=== PATIENT | male | born 1945 | race Caucasian/White ===

== ENCOUNTER 2016-05-10 17:30 | Observation (INO) | payer MEDICARE, OTHER ==
[~2016-05-10] VITALS: Ht 162.6 cm; Wt 64.0 kg
--- NOTE | 2016-05-10 17:24 | NUR ---
ADMISSION TO MEDICAL UNIT PT HYPERTENSIVE, OTHERWISE, VSS. RA. DENIES PAIN. ADMITTED WITH 22G IV FROM [facility]. EMS LAST CHECKED BLOOD GLUCOSE AT 1715, READING WAS 348. PT TRANSFERRED INDEPENDENTLY FROM CART TO BED.
[2016-05-10 17:30] VITALS: BP 170/82; PULSE 71; RESP 16; TEMP 96.9; O2SAT 95
[~2016-05-10 17:30] MED LIST: ASCO-296 PO; ASPI-611 PO; CITA-50 PO; DONE10TA21 PO; GLIM4TAB31 PO; INSU100C11 SQ; MULT-806 PO; OMEP-29 PO; SIMV40TA82 PO; TRAM-277 PO
--- OUTSIDE RECORDS SUMMARY | 2016-05-10 17:42 | XMS REPORT | CCD ---
Author Author LILIANA DURBIN Organization Unknown Address [address], [place] [id number] Phone 0 Care Team Providers Care Automobile Service Station Manager Name Role Phone Erik SHELBY Attending Physician [phone] Vital Signs Unknown or Not Available. Allergies Allergy Code Allergy Type Reaction Status CODEINE 2670 Drug allergy Active Procedures Unknown or Not Available. History of Immunizations Unknown or Not Available. Problems Unknown or Not Available. Results C-REACTIVE PROTEIN - Collect Date/Time: 02/17/2016 15:35 Test Name Code Test Result Test Units Test Ref Range CRP <2 mg/L L=0 H=5 COMP METABOLIC - Collect Date/Time: 02/17/2016 15:35 Test Name Code Test Result Test Units Test Ref Range GLUCOSE 266 mg/dL L=70 H=110 BUN 24 mg/dL L=7 H=18 CREATININE 1.32 mg/ dL L=0.60 H=1.30 AGE 71 YEARS GFR 53.2 L=60.0 H=120 SODIUM 140 mmol/L L=136 H=145 POTASSIUM 4.0 mmol/ L L=3.5 H=5.1 CHLORIDE 105 mmol/L L=98 H=107 CO2 27 mmol/L L=21 H=32 CALCIUM 9.6 mg/dL L=8.5 H=10.1 AST 9 U/L L=15 H=37 ALT 19 U/L L=12 H=78 ALKALINE PHOS 105 U/ L L=46 H=116 TOTAL PROTEIN 7.7 g/ dL L=6.4 H=8.2 ALBUMIN 3.7 g/dL L=3.4 H=5.0 TOTAL BILI 0.40 mg/ dL L=0.00 H=1.00 CBC W/ DIFF - Collect Date/Time: 02/17/2016 15:35 Test Name Code Test Result Test Units Test Ref Range WBC 14.5 x10^3 L=4.8 H=10.8 RBC 4.60 x10^6 L=4.70 H=6.10 HEMOGLOBIN 15.0 g/ dL L=14.0 H=18.0 HEMATOCRIT 44.6 % L=42.0 H=52.0 MCV 97 fL L=80 H=100 MCH 32.5 pg L=27.0 H=33.0 MCHC 33.6 g/dL L=33.0 H=37.0 RDW 12.5 % L=11.5 H=14.5 PLATELETS 308 x10^3 L=150 H=450 MPV 8.4 fL L=7.8 H=11.0 NEUTROPHILS 66.6 % L=40.0 H=80.0 LYMPHOCYTES 24.3 % L=20.0 H=45.0 MONOCYTES 4.7 % L=0.0 H=10.0 EOSINOPHILS 3.4 % L=0.0 H=5.0 BASOPHILS 1.0 % L=0.0 H=2.0 REFLEX MAN DIFF NO N /A Active Medications Unknown or Not Available. Medications Administered During Visit Unknown or Not Available. Encounters Encounter Diagnosis Diagnosis Code Start Date Noninfective gastroenteritis and colitis, unspecified K529 02/17/2016 Social History Smoking Status Code Start Date End Date Current every day smoker [id number] Patient Decision Aids Unknown or Not Available. Discharge Instructions You were admitted to [facility] on 02/17/2016 15:29 with a principal diagnosis of Noninfective gastroenteritis and colitis, unspecified You had the following tests done: C- REACTIVE PROTEIN CBC W/ DIFF COMP METABOLIC You were discharged from [facility] on 02/17/2016 15:29 Should you have any questions prior to discharge, please contact a member of your healthcare team. If you have left the hospital and have any questions, please contact your primary care physician. Chief Complaint and Reason For Visit Chief Complaint Date of Onset LAB Function Status Unknown or Not Available. Plan of Care Unknown or Not Available. Referral/Transition of Care Unknown or Not Available.
--- OUTSIDE RECORDS SUMMARY | 2016-05-10 17:42 | XMS REPORT | Continuity of Care Document ---
Demographics Preferred Language Unknown Marital Status Unknown Pentecostalism Affiliation Unknown Race Unknown Ethnic Group Unknown Author Author [facility] Organization [facility] Address Unknown Phone Unavailable Allergies Medications Problems Procedures Results Encounters ACCT No. Visit Date/Time Discharge Status Pt. Type Provider Facility Loc./Unit Complaint [id number] 03/27/2016 08:17:00 [facility] Unknown [id number] 09/18/2013 10:47:00 [facility] Unknown
--- OUTSIDE RECORDS SUMMARY | 2016-05-10 17:42 | XMS REPORT | CCD ---
Author Author NUHA ROY Organization Unknown Address [address], [place] [id number] Phone 0 Care Team Providers Care Photo Manager Name Role Phone Jacinta SALVADOR Attending Physician [phone] Jacinta SALVADOR Primary Surgeon [phone] Vital Signs Unknown or Not Available. Allergies Allergy Code Allergy Type Reaction Status CODEINE 2670 Drug allergy Active Procedures Unknown or Not Available. History of Immunizations Unknown or Not Available. Problems Unknown or Not Available. Results Unknown or Not Available. Medications Medication Code Dose Units Frequency Route Modification Start Date/Time Stop Date/ Time Nitrostat 0.4MG Sublingual Tablet 641119 0.4 MILLIGRAMS NEEDED SUBLINGUAL Humalog Pen 100U/ML Subcutaneous Suspension 810805 9 UNIT TWICE A DAY SUBCUTANEOUS Tramadol 50MG Oral Tablet 939866 100 MILLIGRAMS AT BEDTIME ORAL Simvastatin 40MG Oral Tablet 363111 40 MILLIGRAMS AT BEDTIME ORAL Celexa 20MG Oral Tablet 176113 20 MILLIGRAMS DAILY ORAL ARICEPT 0 10 MILLIGRAM AT BEDTIME By Mouth Lantus 100U/1ML Subcutaneous Solution 394815 15 UNIT AT BEDTIME SUBCUTANEOUS Tramadol 50MG Oral Tablet 229438 50 MILLIGRAMS DAILY ORAL Omeprazole 20MG Oral Capsule, Delayed Release 150715 40 MILLIGRAMS DAILY ORAL Medications Administered Unknown or Not Available. Encounters Unknown or Not Available. Social History Smoking Status Code Start Date End Date Current every day smoker [id number] Patient Decision Aids Unknown or Not Available. Discharge Instructions You were admitted to [facility] on 09/16/2013. You were discharged from [facility] on 09/16/2013. Should you have any questions prior to discharge, please contact a member of your healthcare team. If you have left the hospital and have any questions, please contact your primary care physician. Chief Complaint and Reason For Visit Unknown or Not Available. Function Status Unknown or Not Available. Plan of Care Unknown or Not Available. Referral/Transition of Care Unknown or Not Available.
[2016-05-10] MEDS ORDERED: NORMAL SALINE 1,000 ML IV SCH ×2 (18:00→20:00)
[2016-05-10] MEDS ORDERED: CLONIDINE 0.1 MG TABLET PO ONE (18:00)
[2016-05-10 18:09] VITALS: Ht 162.6 cm; Wt 64.0 kg
[2016-05-10] MEDS ORDERED: MIRT15TA2 PO (18:38)
[2016-05-10] MEDS ORDERED: HYDR25TA PO (18:38)
[2016-05-10] MEDS ORDERED: ASPI-917 PO (18:38)
[2016-05-10] MEDS ORDERED: LISI-621 PO (18:38)
[2016-05-10] MEDS ORDERED: INSULIN LISPRO 100 UNIT/ML SQ ONE (19:00)
[2016-05-10 19:35] VITALS: BP 140/68
--- NOTE | 2016-05-10 19:37 | NUR ---
SHIFT SUMMARY VSS, HYPERTENSION IMPROVED. LUNGS REMAINS CLEAR BUT DIMINISHED IN THE BASES, UNCHANGED FROM ADMISSION. NS INFUSING AT 500CC/HR UNTIL THIS LITER IS COMPLETE. THIS IS THE SECOND LITER BAG OF NS PATIENT HAS RECEIVED SINCE ARRIVAL. LAST BLOOD GLUCOSE DOCUMENTED AT 1814, LOWER THAN PREVIOUSLY. NEXT BLOOD GLUCOSE WILL BE CHECKED AT 2014. PATIENT HAS GOOD APPETITE. UP WITH SBA. BED ALARM IN USE DUE TO HYPERGLYCEMIA AND DEMENTIA.
[2016-05-10] MEDS: NORMAL SALINE 1,000 ML IV SCH (21:46)
--- NOTE | 2016-05-10 22:16 | HPPDOC ---
HPI - Adult Date DATE: 05/10/16 TIME: 22:02 General Chief Complaint: my sugar is high. History of Present Illness Mr. Erich Lopez was seen by me in his room and around 7:30 tonight. He was brought down here by ambulance from the [facility] where he went because he generally didn't feel well and he had a high blood sugar of 500 at home and 423 in the ER [facility]. He lives at home with his there is no further history to his current problem although he has been a diabetic for about 15 years he thinks. Mr. Lopez has significant dementia and his and daughters provide much of this history. Past Medical History Past Medical History This patient's says he's had diabetes mellitus type 2 since about age 53; she says he has some COPD she thinks from many years of smoking but that he doesn't take any medicine for the COPD. 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 It is progressive. He has mild coronary artery disease; and he has peripheral arterial disease with a lower extremity femoral to femoral bypass surgery he has mild cardiomyopathy his last known ejection fraction to be 44% he has dementia and he has hypertension Surgical History Patient's Surgical History: Patient surgical history includes the aorto femoral to femoral bypass not sure when that was done and that's the only surgery that the family lives also needs oxygen at night which technically should be under the medical part in needs 2 L at night. Current Medications Home Meds Reported Medications Mirtazapine (Remeron) 15 Mg Tab.rapdis, 7.5 MG PO DAILY 05/10/16 Hydrochlorothiazide (Hydrochlorothiazide) 25 Mg Tablet, 1 TAB PO DAILY, TAB 05/10/16 Lisinopril (Lisinopril) 20 Mg Tablet, 20 MG PO DAILY for HYPERTENSION, TAB 05/10/16 Aspirin *EC* (Aspirin EC) 325 Mg Tablet., 1 TAB PO DAILY, #30 TAB 5 Refills 05/10/16 Citalopram (Celexa) 20 Mg Tablet, 20 MG PO DAILY 12/11/11 Donepezil Hcl (Aricept) 10 Mg Tablet, 10 MG PO DAILY 12/11/11 Tramadol Hcl (Tramadol Hcl) 50 Mg Tablet, 50 MG PO DAILY TWO TABLETS IN AM (100MG) 12/11/11 Omeprazole (Prilosec) 20 Mg Capsule.dr, 20 MG PO DAILY PT TAKES 1 CAPSULE DAILY 12/11/11 Multivitamins (Multivitamin) 1 Tab Tablet, 1 TAB PO DAILY 12/10/11 Ascorbic Acid (Vitamin C) 500 Mg Tablet, 500 MG PO DAILY 12/10/11 Insulin Glargine (Lantus) 100 U/Ml Cartridge, 12 U SQ HS 03/04/08 Simvastatin (Simvastatin) 40 Mg Tablet, 40 MG PO DAILY 03/04/08 Discontinued Reported Medications Aspirin (Aspirin) 81 Mg Tablet, 81 MG PO DAILY 12/11/11 Allergies: Coded Allergies: Codeine (Verified Allergy, Unknown, 09/03/07) Family History Family History: Family history is noncontributory Social History Smoking Status: Former smoker Does patient use chewing tobac: No Substance Use Type: does not use Alcohol Intake: none, occasionally Marital Status: Sexuality: female partner Housing: house Household Members: spouse Current Occupational Status: retired Advance Directives: No DPOA for Healthcare Only Review of Systems Constitutional: DENIES: insomnia, weight gain, weight loss Eyes General: DENIES: burning, itching Lids/Accessories: DENIES: erythema, swelling Vision: DENIES: change in color ENMT Ears: DENIES: drainage, pain Hearing: DENIES: hearing loss, tinnitus Balance: DENIES: falling to one side, vertigo Sinuses: NOT FOUND: congestion, rhinorrhea Nose: NOT FOUND: change in smell, foreign body, nosebleeds, pain Mouth/Throat: DENIES: change in swallowing, drooling, pain, painful swallowing , sore throat ENMT Teeth: DENIES: pain Jaw: DENIES: clicking, limited opening of mouth Cardiovascular DENIES: chest pain, orthopnea Vascular: DENIES: Raynaud's, atrophy Pulmonary Respiratory: DENIES: pleuritic chest pain, sputum GI Upper Abdomen: DENIES: dysphagia, food intolerances, nausea Lower Abdomen: DENIES: blood in stool, pain General: DENIES: discharge, dysuria, frequency, hematuria, polyuria, urgency Male: DENIES: frequency, hesitancy, retention Musculoskeletal General: DENIES: cramps, pain, weakness Integumentary Skin: DENIES: color change, itching, rash Hair: DENIES: alopecia, dandruff Nails: DENIES: paronychia, subungal hematoma Neurological General: DENIES: ataxia, headache, numbness, paralysis/paresis, tremor Psychiatric Psychiatric: DENIES: depression, emotional instability, nervousness Endocrine DENIES: heat/cold intolerance Hematologic/Lymphatic DENIES: anemia, easy bruising All Other Systems All Other Systems: Reviewed (remainder of 10-point ROS Neg.) Physical Exam General General Nourishment: well nourished, well developed General Body Habitus: well groomed Vital Signs Vital Signs Date Time Temp Pulse Resp B/P Pulse Ox O2 Delivery O2 Flow Rate FiO2 05/10/16 19:35 140/68 05/10/16 17:30 96.9 71 16 95 Room Air Height (Feet): 5 Height (Inches): 4.00 Telemetry Rhythm: Sinus Rhythm Eyes Brief: FOUND: EOMI, PERRL ENMT Brief: FOUND: TM clear, TM good light reflex, ear canals clear Neck Brief: NOT FOUND: adenopathy, carotid bruits, thyromegaly Respiratory Brief: FOUND: clear all nair, equal bilaterally, NOT FOUND: rales , wheezes Cardiovascular (brief) Cardiac Brief: FOUND: regular rate, regular rhythm, NOT FOUND: pedal edema Capillary Refill: <2 sec Abdomen (brief) Abdominal Brief: FOUND: BS normo active x4, soft, tender Lymphatic (brief) Lymphatic Brief: NOT FOUND: adenopathy, lymphedema Musculoskeletal (brief) Musculoskeletal Brief: NOT FOUND: spasm, tenderness Integumentary (brief) Integumentary Brief: FOUND: dry, pink, warm, NOT FOUND: rash Neurologic (brief) Neurological Brief: FOUND: cranial 2-12 intact, motor, NOT FOUND: facial droop , ptosis Neurologic RN Documented GCS Eye Opening: Verbal: Motor: Total: Psychiatric (brief) FOUND: alert, oriented, other Comments Patient does have significant dementia which is somewhat obvious. Laboratory Laboratory Tests Test 05/10/16 20:13 Glucometer 315mg/dL [facility] patient had a two-view chest x-ray which we will repeat here. The radiologist read that one noticed atelectasis and thought to be repeated, although he did not say when. Sepsis Diagnostic Criteria Sepsis Confirmed/Suspected Infection: No Assessment & Plan Assessment The lab work which want to mention at this point in time showed a blood sugar in the urine, troponin was negative, glucose of the ER at [facility] was 423. GFR is 51 years of hyponatremia of 134 his ABG looks very good and is influenza A and B testing was negative for, his diagnoses are as follows: Diabetes mellitus type 2, poorly controlled COPD, fairly mild 3. Aortic stenosis of moderate to severe 4. Dementia, moderate to moderate +5. Hypertension 6. Mild coronary artery disease. Peripheral arterial disease A. Mild cardiomegaly with an ejection fraction of 44% Plan is to recheck his troponin level, due to repeat his EKG, the chest x-ray to clear up any questions with the first chest x-ray and hydrate him and get his sugar down to a more reasonable level than the 315 it was when he came in here. This is good Code Status Full Code Hospital Course Summary Disclaimer The hospital course summary below is not to be considered part of the above Progress Note. JAROD CERNA DO May 10, 2016 22:05
[2016-05-10] MEDS: INSULIN LISPRO 100 UNIT/ML SQ PRN (22:41)
[2016-05-11] VITALS: BP 140/67; PULSE 58; RESP 16; TEMP 97; O2SAT 95
[2016-05-11] MEDS: NORMAL SALINE 1,000 ML IV SCH ×2 (03:09→08:38)
--- NOTE | 2016-05-11 05:16 | NUR ---
SHIFT SUMMARY: PT IS A&OX2-3, VSS, LUNGS ARE CLEAR, BUT DIMINISHED. NORMAL SALINE IS RUNNING AT 200 MLS/HR. SLEPT IN PT'S ROOM DURING THE NIGHT. PT IS UP WITH STANDBY ASSIST TO THE BATHROOM. PT IS ON RA DURING THE DAY, BUT 2L OXYGEN NC AT NIGHT. PT HAS BGM'S, AND MODERATE DEMENTIA. PT DENIES ANY PAIN OR N/V. BED ALARM ON, CALL LIGHT WITHIN REACH.
[2016-05-11] MEDS: INSULIN LISPRO 100 UNIT/ML SQ PRN ×2 (05:57→12:19)
[2016-05-11] MEDS ORDERED: OMEPRAZOLE 20 MG CAPSULE PO SCH (06:30)
[2016-05-11] MEDS ORDERED: INSU100V SQ (06:35)
[2016-05-11 07:25] VITALS: BP 152/71; PULSE 61; RESP 18; TEMP 97; O2SAT 96
[2016-05-11 07:28] VITALS: O2SAT 91
[2016-05-11 07:29] VITALS: PULSE 61; RESP 18
[2016-05-11] MEDS ORDERED: HYDROCHLOROTHIAZIDE 25 MG TABLET PO SCH ×2 (08:00)
--- NOTE | 2016-05-11 08:21 | DI ---
INDICATION: ITS.REASON: cough and repeat from today PROCEDURE: CHEST 2-VIEWS UPRIGHT (PA \T\ LAT) Encounter: Initial COMPARISON: May 10, [address] chest dated April 16, 2014 FINDINGS: Coarse interstitial markings are seen bilaterally consistent with interstitial lung disease or pulmonary fibrosis. Severe emphysema. No lobar consolidative pneumonia. Heart size and mediastinal contours are grossly stable. Pulmonary vascularity is unchanged. Impression: Severe emphysema and evidence of interstitial lung disease or fibrosis. Underlying atypical pneumonia or mild edema cannot be confidently excluded with this appearance. Recommend clinical and laboratory correlation. .
[2016-05-11] MEDS: INSULIN LISPRO 100 UNIT/ML SQ SCH ×2 (08:53→12:18)
[2016-05-11] MEDS ORDERED: LISINOPRIL 20 MG TABLET PO SCH ×2 (09:00)
[2016-05-11] MEDS ORDERED: ASCORBIC ACID 500 MG TABLET PO SCH (09:00)
[2016-05-11] MEDS ORDERED: TRAMADOL 50 MG TABLET PO SCH (09:00)
[2016-05-11] MEDS ORDERED: ASPIRIN *EC* 325mg TABLET PO SCH (09:00)
[2016-05-11] MEDS ORDERED: MULTIVITAMIN PLAIN TABLET PO SCH (09:00)
[2016-05-11] MEDS ORDERED: HYDR12.530 PO (10:48)
[2016-05-11] MEDS ORDERED: LISI10TA7 PO (10:56)
[2016-05-11 11:46] LABS: ANION GAP 9 MEQ/L (5-15); BUN/CREATININE RATIO 21 RATIO (6-26); CALCIUM 8.6 MG/DL (8.4-10.2); CHLORIDE 114 MEQ/L (98-107); CO2 - CARBON DIOXIDE 22 MEQ/L (22-30); CREATININE 0.9 MG/DL (0.8-1.5); GLOMERULAR FILTRATION RATE 83; GLUCOSE 208 MG/DL (75-110); POTASSIUM 4.1 MEQ/L (3.6-5); SODIUM 145 MEQ/L (134-144)
--- NOTE | 2016-05-11 12:29 | NUR ---
DM screen Diet: LA4115; ate 95% of BF; stated he had "not eaten BF". RD visited with , Fátima, who was at patient's bedside. Pt eats 2 meals daily (1100, 1800), sleeps until 6467-1213. Drinks diet Pepsi and water at meals; does not drink sugar drinks. RD reviewed DM plate, with suggestion of fruit at BF and vegetable at supper. Reviewed S/S of hypoglycemia, which he has not had for a long time, along with treatment options. Addendum: 05/11/16 at [address] Gave contact information and MNT brochure for f/u.
--- NOTE | 2016-05-11 14:36 | NUR ---
STATUS VSS. DENIES PAIN. UP IN ROOM WITH SBA. GOOD URINE OUTPUT. BLOOD GLUCOSE TRENDING DOWN, LAST CHECK BEFORE LUNCH WAS 211. GOOD APPETITE. NS INFUSING AT 100 CC/HR. IN ROOM ALSO.
--- NOTE | 2016-05-11 14:37 | NUR ---
CM THIS WORKER MET WITH PT IN ROOM. PT WAS LAYING IN BED. PT'S AT BEDSIDE. THIS WORKER ADVISED OF ROLE OF CASE MANAGEMENT. PT AND BOTH DENIED ANY NEEDS AT THIS TIME. PT IS LIVING AT HOME WITH . REPORTS THAT SHE TAKES CARE OF HIS NEEDS. PT IS ABLE TO AFFORD AND RECEIVE ALL OF HIS MEDICATIONS. CONTACT INFORMATION PROVIDED TO FAMILY AND ENCOURAGED TO CONTACT WITH ANY NEEDS. UPDATE TO PRIMARY NURSE AND PHYSICIAN AT THIS TIME.
[2016-05-11] MEDS ORDERED: INSU100V8 SQ (14:57)
--- NOTE | 2016-05-11 14:57 | PNPDOC ---
Subjective Date DATE: 05/11/16 TIME: 14:49 Subjective F/U: Type II DM with hyperglycemia Doing well today. Breathing well-not having increased SOA cough or congestion. No chest pressure or pain. Eating well without nausea. No ab pain. Urinating well. No f/c. Objective Vital Signs Vital signs Vital Signs Date Time Temp Pulse Resp B/P Pulse Ox O2 Delivery O2 Flow Rate FiO2 05/11/16 07:29 61 18 05/11/16 07:28 91 Room Air 05/11/16 07:25 97.0 152/71 2.00 Telemetry Rhythm: Sinus Rhythm Height (Feet): 5 Height (Inches): 4.00 Weight (Kilograms): 64.000 General General Appearance: Alert, Well Nourished, Well Developed, Cooperative, No Acute Distress, Looks Stated Age Eyes (Brief) Eyes: FOUND: EOMI, PERRL, NOT FOUND: scleral icterus ENMT (Brief) ENMT: FOUND: hearing intact, mucosa moist Neck (Brief) Neck: FOUND: nuchal rigidity, spasm, NOT FOUND: midline Respiratory (Brief) Respiratory: FOUND: clear all nair, equal bilaterally, NOT FOUND: rales, wheezes Cardiovascular (Brief) Cardiac: FOUND: murmur, regular rate, regular rhythm Abdomen (Brief) Abdominal: FOUND: BS normo active x4, soft, NOT FOUND: tender Extremities (Brief) Extremity : Side: Bilateral Extremity: leg Extremity Finding: NOT FOUND: edema Musculoskeletal (Brief) Musculoskeletal: FOUND: extremities move equally, NOT FOUND: deformity, loss of motion, spasm, tenderness Integumentary (Brief) Integumentary: FOUND: dry, warm Neurologic (Brief) Neurological: FOUND: cranial 2-12 intact, motor (Intact ) Psychiatric (Brief) Psychiatric: FOUND: alert, attentive, normal affect, oriented Laboratory Laboratory Laboratory Tests 05/11/16 11:27 Sepsis Diagnostic Criteria Sepsis Confirmed/Suspected Infection: No Assessment & Plan Problems: (1) Type II diabetes mellitus Status: Chronic Qualifiers: Diabetes mellitus complication status: with hyperglycemia Diabetes mellitus skilled nursing insulin use: with skilled nursing use Qualified Codes: E11.65 - Type 2 diabetes mellitus with hyperglycemia; 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 (2) CAD (coronary artery disease) Status: Chronic Qualifiers: Coronary Disease-Associated Artery/Lesion type: [place] artery [place] vs. transplanted heart: [place] heart (3) PVD (peripheral vascular disease) Status: Chronic (4) HTN (hypertension) Status: Chronic Qualifiers: Hypertension type: essential hypertension Qualified Codes: I10 - Essential (primary) hypertension (5) COPD (chronic obstructive pulmonary disease) Status: Chronic Qualifiers: COPD type: unspecified COPD Qualified Codes: J44.9 - Chronic obstructive pulmonary disease, unspecified (6) Dementia Status: Chronic Qualifiers: Dementia type: unspecified type Assessment Will d/c to home. Increase Lantus from 12 to 14 units at night. F/U with Dr Reid in 1 week See orders for details. Code Status Full Code Hospital Course Summary Disclaimer The hospital course summary below is not to be considered part of the above Progress Note. Hospital Course Summary 05/10 Plan is to recheck his troponin level, due to repeat his EKG, the chest x-ray to clear up any questions with the first chest x-ray and hydrate him and get his sugar down to a more reasonable level than the 315 it was when he came in here. 05/11 Doing well today. Breathing well-not having increased SOA cough or congestion. No chest pressure or pain. Eating well without nausea. No ab pain. Urinating well. No f/c. Blood sugars decreasing to lower 200 range. Will d/c to home. Increase Lantus from 12 to 14 units at night. F/U with Dr Reid in 1 week See orders for details. CATIA ORONA MD May 11, 2016 14:53
--- NOTE | 2016-05-11 16:00 | NUR ---
discharge Pt had pulled out own iv site. discharge instructions reviewed with . dc per wc with .
[2016-05-11 16:04] VITALS: BP 160/76; PULSE 85; RESP 18; TEMP 98.7; O2SAT 87
[2016-05-11] MEDS ORDERED: SIMVASTATIN 40 MG TABLET PO SCH (22:00)
[2016-05-11] MEDS ORDERED: DONEPEZIL 10 MG TABLET PO SCH (22:00)
[2016-05-12] MEDS ORDERED: HYDROCHLOROTHIAZIDE 12.5 MG CAPSULE PO SCH (08:00)
[2016-05-12] MEDS ORDERED: HYDROCHLOROTHIAZIDE 25 MG TABLET PO SCH (08:00)
[2016-05-12] MEDS ORDERED: LISINOPRIL 20 MG TABLET PO SCH (09:00)
[2016-05-12] MEDS ORDERED: LISINOPRIL 10 MG TABLET PO SCH (09:00)
--- NOTE | 2016-05-12 14:45 | DSF ---
ADMITTING DIAGNOSIS Type 2 diabetes mellitus with hyperglycemia. DISCHARGE DIAGNOSIS Type 2 diabetes mellitus with hyperglycemia - sugars improved. ASSOCIATED CONDITIONS/COMPLICATIONS 1. CAD. 2. PVD. 3. Hypertension. 4. COPD. 5. Dementia. PROCEDURES None CONSULTS None. CLINICAL RESUME Mr. Lopez is a 71-year-old gentleman who was made direct admit to [facility] at the request of ED provider in [place]. He presented to [facility] emergency room in [place] earlier today with symptoms of generally not feeling well. Additionally that morning blood sugar was elevated at 500. In the emergency room it was found to be 423. He resides with his . Notes sugars are typically in the 200s. He has been diabetic for around 15 years. He does have significant dementia and and daughter provide history. For complete details of the H&P refer to that document. LABORATORY Troponin is 0.022. Serum sodium is 145, potassium 4.1, chloride 114, CO2 22, BUN 19 with creatinine 0.9, GFR 83, blood glucose 208. HOSPITAL COURSE The patient was placed in outpatient observation status at [facility] under the care of Dr. Jaffe. He started on normal saline at 200 cc an hour to provide hydration. Insulin sliding scale was initiated. Blood sugars were monitored. We did repeat troponin here to monitor blood sugars. Overall his glycemic control showed improvement, decreasing to 315 by time of arrival and 211 by time of discharge. He had no untoward symptoms. He is not having any nausea, vomiting, diarrhea or abdominal pain. Respiratory status did well. By time of discharge he was eating, drinking and ambulating well. Vitals were stable and he is afebrile. Stable to be discharged to home. Prior to discharge we discussed about increasing his Lantus dose to 14 units for better glycemic control. Narrative disclaimer: Above narrative is a brief summary of the patient's hospitalization; for complete details of hospital course, refer the medical record. DISCHARGE CONDITION Stable/good. DIET: 2000 kilocalorie ADA , low sodium. ACTIVITIES As tolerated. MEDICATIONS 1. Lantus 14 units subcu q.h.s. 2. Humalog 9 units subcu with meals. 3. Vitamin C 500 mg daily 4. Aspirin 325 mg daily. 5. Celexa 20 mg daily. 6. Aricept 10 mg daily. 7. Hydrochlorothiazide 12.5 mg with breakfast. 8. Lisinopril 10 mg daily. 9. Remeron 7.5 mg daily. 10. Multivitamin daily. 11. Omeprazole 20 mg daily. 12. Simvastatin 40 mg daily. 13. Tramadol 50 mg daily FOLLOWUP The patient will follow with Dr. Farah in one week, calling or returning sooner as problems or need indicate. INSTRUCTIONS TO PATIENT Patient instructed on his diagnosis and treatments provided. We discussed the rationale behind increasing his home Lantus. Monitor blood sugars. Encouraged him on healthy well-rounded diabetic diet and activities. Should problems or need occur he can be in contact with Dr. Farah. If symptoms become quite dire he can present to emergency room for acute evaluation. He voiced understanding of the above. Time spent with discharge greater than 30 minutes. MTDD
== END 2016-05-11 16:30 | disposition home or self-care (01) ==
LOC: MED 17:30
DX: E11.65 Type 2 diabetes mellitus with hyperglycemia (principal); I25.10 Atherosclerotic heart disease of native coronary artery without angina pectoris; I73.9 Peripheral vascular disease, unspecified; I10 Essential (primary) hypertension; J44.9 Chronic obstructive pulmonary disease, unspecified; F03.90 Unspecified dementia, unspecified severity, without behavioral disturbance, psychotic disturbance, mood disturbance, and anxiety; I42.9 Cardiomyopathy, unspecified; Z99.81 Dependence on supplemental oxygen; Z79.82 Long term (current) use of aspirin; Z79.4 Long term (current) use of insulin; Z79.899 Other long term (current) drug therapy
CPT/HCPCS: 36415; 71020; 80048; 82948; 84484; 93005; 96360; 96361; 96372; A9270; G0378; G0379; J7030; 99218

== ENCOUNTER 2016-06-11 08:51 | Outpatient (CLI) | payer MEDICARE, OTHER ==
[2016-06-11] VITALS (22 sets, daily range): BP systolic 140–166; BP diastolic 60–87; PULSE 57–67; RESP 12–18; TEMP 96.5–97.1; O2SAT 88–99; Ht 167.6 cm; Wt 61.1 kg
[~2016-06-11] VITALS: Ht 167.6 cm; Wt 61.1 kg
[~2016-06-11 08:51] MED LIST changes: -ASPI-611 PO; +ASPI-917 PO; -GLIM4TAB31 PO; +HYDR12.530 PO; -INSU100C11 SQ; +INSU100V SQ; +INSU100V8 SQ; +LISI10TA7 PO; +MIRT15TA2 PO
[2016-06-11] MEDS ORDERED: SALINE FLUSH 10ml SYRINGE ONE (08:56)
--- NOTE | 2016-06-11 08:58 | NUR ---
Admit Pt admitted at this time via ambulatory. Pt A&O X2. VS stable on RA. Family present at this time. Side rails up X2, call light w/in reach, bed alarm on.
--- NOTE | 2016-06-11 09:22 | NUR ---
CM CM IN TO VISIT WITH PT. HE IS ALERT AND ORIENTED. HIS AND DAUGHTER ARE PRESENT. PT PLANS TO DC HOME. THEY DENY DC NEEDS. JASEN IS 4. THEY ARE GIVEN CM CONTACT INFORMATION. Addendum: 06/11/16 at 0923 by RILEY ADDISON RN Amended: Links added.
[2016-06-11 09:51] LABS: BASOPHILS # (AUTO) 0.1 T/MM3 (0-0.2); BASOPHILS % (AUTO) 0.9 % (0-2); EOSINOPHILS # (AUTO) 0.4 T/MM3 (0-0.5); EOSINOPHILS % (AUTO) 3.3 % (0-4); HCT - HEMATOCRIT 39.9 % (41-53); HGB - HEMOGLOBIN 13.5 GM/DL (13.5-17.5); IMMATURE GRANULOCYTE # (AUTO) 0.04 T/MM3 (0.00-0.03); IMMATURE GRANULOCYTE % (AUTO) 0.4 % (0.0-0.5); LYMPHOCYTES # (AUTO) 2.9 T/MM3 (1-4.8); LYMPHOCYTES % (AUTO) 25.8 % (23-45); MEAN CORPUSCULAR HGB 33.6 UUG (26-34); MEAN CORPUSCULAR HGB CONC(MCHC 33.8 GM/DL (31-37); MEAN CORPUSCULAR VOLUME 99.3 UM3 (80-100); MEAN PLATELET VOLUME 10.8 UM3 (9.4-12.4); MONOCYTES # (AUTO) 0.7 T/MM3 (0-0.8); MONOCYTES % (AUTO) 5.7 % (0-9.0); NEUTROPHILS #(AUTO)-ABSOLUTE 7.3 T/MM3 (1.8-7.7); NEUTROPHILS % (AUTO) 63.9 % (33-66); RED BLOOD COUNT 4.02 M/MM3 (4.50-5.90); WBC - WHITE BLOOD COUNT 11.4 T/MM3 (4.5-11.0)
[2016-06-11 09:59] LABS: INR 0.99 (0.76-1.04); PROTHROMBIN TIME 10.8 SEC (9.31-12.49)
[2016-06-11 10:03] LABS: ALBUMIN 3.9 G/DL (3.5-5.0); ALBUMIN/GLOBULIN RATIO 1.3 RATIO (1.1-2.2); ALKALINE PHOSPHATASE 90 U/L (38-126); ALT (SGPT) 30 U/L (21-72); ANION GAP 14 MEQ/L (5-15); AST (SGOT) 16 U/L (17-59); BUN/CREATININE RATIO 16 RATIO (6-26); CALCIUM 9.3 MG/DL (8.4-10.2); CHLORIDE 105 MEQ/L (98-107); CO2 - CARBON DIOXIDE 25 MEQ/L (22-30); CREATININE 1.1 MG/DL (0.8-1.5); GLOMERULAR FILTRATION RATE 66; GLUCOSE 244 MG/DL (75-110); POTASSIUM 4.1 MEQ/L (3.6-5); SODIUM 144 MEQ/L (134-144); TOTAL PROTEIN 6.9 G/DL (6.3-8.2)
--- NOTE | 2016-06-11 12:30 | NUR ---
STATUS PT IS ALERT TO PERSON AND PLACE, DENIES PAIN. HOB ELEVATED 30 DEGREES, OXYGEN CONTINUED AT 2L. PT IS RECOVERED WITHOUT EVENT FROM [facility] WITH CONSCIOUS/MODERATE SEDATION. PT VISITING WITH FAMILY AT BEDSIDE. REPORT GIVEN TO SAJI NUNES RN.
[2016-06-11] MEDS ORDERED: LORAZEPAM 1 MG TABLET PO PRN (14:45)
[2016-06-11] MEDS ORDERED: PROMETHAZINE 25 MG INJECTION IV PRN (14:45)
[2016-06-11] MEDS ORDERED: NITROGLYCERIN 0.4 MG SUBLINGUAL TABLET SL PRN (14:45)
[2016-06-11] MEDS ORDERED: ACETAMINOPHEN 325 MG TABLET PO PRN (14:45)
[2016-06-11] MEDS ORDERED: BISACODYL 10 MG SUPPOSITORY RECTALLY PRN (14:45)
[2016-06-11] MEDS ORDERED: MAG-AL + SIM LIQUID 30 ML UDC PO PRN (14:45)
[2016-06-11] MEDS ORDERED: METOCLOPRAMIDE 10mg/2ml INJECTION IV PRN (14:45)
[2016-06-11] MEDS ORDERED: MILK OF MAGNESIA 30 ML SUSP PO PRN (14:45)
[2016-06-11] MEDS ORDERED: BISACODYL 5 MG E.C. TABLET PO PRN (14:45)
[2016-06-11] MEDS ORDERED: LORAZEPAM 2 MG/ML INJECTION IV PRN (14:45)
--- NOTE | 2016-06-11 15:10 | NUR ---
Discharge Pt discharged at this time via ambulatory through the ER entrance in the company of an adult. IV catheter DC'd prior to transfer, catheter tip intact. Wristband removed. Discharge instructions gone over with Pt's daughter (RENNY). This RN discussed medications, diet, activity, and expected signs and symptoms. Daughter and Pt verbalized understanding.
[2016-06-11] MEDS ORDERED: FENTANYL 100mcg/2ml INJECTION IV ONE (16:16)
[2016-06-11] MEDS ORDERED: MIDAZOLAM 2mg/2ml INJECTION IV ONE (16:16)
--- NOTE | 2016-06-12 16:33 | TEEF ---
DATE 06/11/2016 INDICATION Significant and progressive aortic stenosis. INFORMED CONSENT Indications , alternatives, risks and benefits of the procedure were discussed fully with the patient and the family. They agreed to proceed. SEDATION Patient received IV sedation, Versed 1 mg, fentanyl 25 mcg. Additional doses may be given (see nurses' note) as needed. Cetacaine spray was sprayed to the oropharynx. PROCEDURE Omniprobe was inserted without difficulty. Transgastric lower and mid transesophageal images of good quality were obtained. Procedure was well tolerated. There were no immediate complications. FINDINGS 1. CARDIAC CHAMBERS. Left atrium is mildly enlarged. All other cardiac chambers are normal in size. Visualized portion of the thoracic aorta exhibits diffuse atherosclerotic and calcified changes without mobile atheromas, dissection or aneurysm. Interatrial septum appears intact without demonstrable shunt on color flow Doppler and bubble study. Left atrial appendage does not demonstrate any clots, with normal velocities on Doppler. No demonstrable intracardiac masses or thrombi. 2. LV FUNCTION. Concentric LVH of at least a mild degree is present. Wall motion analysis shows septal hypokinesis. LV systolic dysfunction of a mild degree is present. Ejection fraction is visually estimated about 45%. 3. VALVES. Mitral valve exhibits slight sclerosis, valve excursion is normal. Tricuspid valve structure and motion appear normal, normal valve excursion. Aortic valve exhibits a trileaflet structure with moderate calcification present and a fusion of the noncoronary cusp which is near fixed and fused to the left coronary cusp. The right coronary cusp exhibits some opening. Overall aortic valve opening appears severely restricted and correlates with planimetry measurement of up to 0.6 cm2. There is at least mild mitral regurgitation present (1-2+), trace tricuspid regurgitation. Velocity measurements were limited by angulation. Maximum flow velocity at the aortic valve measures 3.1 m/sec. Peak and mean pressure gradients were 39 and 28 mmHg, in order. IMPRESSION 1. Left atrial enlargement, mild. 2. Concentric LVH. 3. Mild LV systolic dysfunction, EF is about 45%. 4. Sclerotic mitral valve with normal opening. 5. Mitral regurgitation, 1-2+. 6. Critical calcific aortic valve stenosis. 7. No demonstrable shunts. 8. Calcified atherosclerotic changes in the thoracic aorta were identified and appear diffuse without mobile atheromas, dissection or aneurysm. [facility]
== END 2016-06-11 15:10 | disposition home or self-care (01) ==
LOC: SRG 08:51 → IMA.BED 08:51
PROVIDERS: ATTEND Internal Medicine Cardiovascular Disease
DX: I08.3 Combined rheumatic disorders of mitral, aortic and tricuspid valves (principal); I70.0 Atherosclerosis of aorta; I42.9 Cardiomyopathy, unspecified; I65.29 Occlusion and stenosis of unspecified carotid artery; I25.10 Atherosclerotic heart disease of native coronary artery without angina pectoris; F03.90 Unspecified dementia, unspecified severity, without behavioral disturbance, psychotic disturbance, mood disturbance, and anxiety; Z79.4 Long term (current) use of insulin; Z79.82 Long term (current) use of aspirin; Z79.899 Other long term (current) drug therapy; Z91.81 History of falling; Z87.891 Personal history of nicotine dependence
CPT/HCPCS: 36415; 80053; 83735; 85025; 85610; 93005; 93312; 93320; 93325; J2250; J3010

== ENCOUNTER 2016-11-24 20:01 | Inpatient (IN) ==
[2016-11-24] MEDS ORDERED: MORPHINE SULFATE 4mg INJECTION IVP ONE (20:06)
--- OUTSIDE RECORDS SUMMARY | 2016-11-24 20:13 | External Medical Summary | Continuity of Care Document ---
:1945 Demographics Phone Unavailable Preferred Language Unknown Marital Status Unknown Voodoo Affiliation Unknown Race Unknown Ethnic Group Unknown Author Organization [facility] Allergies Medications Problems Procedures Results Encounters ACCT No. Visit Discharge Status Pt. Type Provider Facility Loc./Unit Complaint Date/Time [id number] 03/27/2016 [facility] Unknown [id number] 08:17:00 [id number] 09/18/2013 [facility] Unknown [id number] 10:47:00
--- OUTSIDE RECORDS SUMMARY | 2016-11-24 20:13 | External Medical Summary | CCD ---
:1945 Author Name LILIANA DURBIN Address [address], [place] [id number] Care Team Providers Name Role Phone LUCIO SHELBY Attending Physician Unavailable Vital Signs Unknown or Not Available. Allergies [...] BUN 24 mg/dL L=7 H=18 CREATININE 1.32 mg/dL L=0.60 H=1.30 AGE 71 YEARS GFR 53.2 L=60.0 H=120 SODIUM 140 mmol/L L=136 H=145 POTASSIUM 4.0 mmol/L L=3.5 H=5.1 CHLORIDE 105 mmol/L L=98 H=107 CO2 27 mmol/L L=21 H=32 CALCIUM 9.6 mg/dL L=8.5 H=10.1 AST 9 U/L L=15 H=37 ALT 19 U/L L=12 H=78 ALKALINE PHOS 105 U/L L=46 H=116 TOTAL PROTEIN 7.7 g/dL L=6.4 H=8.2 ALBUMIN 3.7 g/dL L=3.4 H=5.0 TOTAL BILI 0.40 mg/dL L=0.00 H=1.00 CBC W/ DIFF - Collect Date/Time: 02/17/2016 15:35 Test Name Code Test Result Test Units Test Ref Range WBC 14.5 x10^3 L=4.8 H=10.8 RBC 4.60 x10^6 L=4.70 H=6.10 HEMOGLOBIN 15.0 g/dL L=14.0 H=18.0 HEMATOCRIT 44.6 % L=42.0 H=52.0 [...] % L=0.0 H=2.0 REFLEX MAN DIFF NO N/A Active Medications Unknown or Not Available. Medications Administered During Visit Unknown or Not Available. Encounters Encounter Diagnosis Diagnosis Code Start Date Noninfective gastroenteritis and K529 02/17/2016 colitis, unspecified Social History Smoking Status Code Start Date End Date Current every day [id number] smoker Patient Decision Aids Unknown or Not Available. Discharge Instructions You were admitted to [facility] on 02/17/2016 15:29 with a principal diagnosis of Noninfective gastroenteritis and colitis, unspecified You had the following tests done: C- REACTIVE PROTEIN CBC W/ DIFF COMP METABOLIC You were discharged from [facility] on 02/17/2016 15:29 Should you have any [...]
[2016-11-24] MEDS: SALINE FLUSH 10ml SYRINGE IVF PRN ×2 (20:41→22:21)
[2016-11-24] MEDS ORDERED: MORPHINE SULFATE 2mg INJECTION IVP ONE (21:49)
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
[2016-11-24] MEDS ORDERED: ACETAMINOPHEN 325 MG TABLET PO PRN (22:43)
[2016-11-24] MEDS ORDERED: DEXTROSE 50% SYRINGE 50ml (1 AMP) IVP PRN (22:43)
[2016-11-24] MEDS ORDERED: DOCUSATE SODIUM 100 MG CAPSULE PO PRN (22:43)
[2016-11-24] MEDS ORDERED: GLUCOSE ORAL GEL 40% 37.5gm PO PRN (22:43)
[2016-11-24] MEDS ORDERED: ONDANSETRON 4 MG/2 ML INJECTION IVP PRN (22:43)
[2016-11-24 22:55] VITALS: BMI 19.5
[2016-11-24] MEDS: NS 1,000 ML IV SCH (23:08)
[2016-11-24] MEDS: MORPHINE SULFATE 4mg INJECTION IVP PRN (23:08)
[2016-11-24] MEDS ORDERED: FALL RISK - PHARMACY CONSULT MC ONE (23:14)
[2016-11-24] MEDS ORDERED: INFLUENZA VAC High Dose 2017-18 (Fluzone HD*) (>=65yo) 0.5ml IM ONE (23:21)
[2016-11-24] MEDS ORDERED: PNEUMOCOCCAL 13 VACCINE 0.5ml INJECTION IM ONE (23:21)
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
[2016-11-24] MEDS: INSULIN REGULAR, HUMAN 100 UNIT/ML INJECTION SQ PRN (23:53)
[2016-11-25] MEDS: MORPHINE SULFATE 4mg INJECTION IVP PRN ×3 (01:18→05:32)
[2016-11-25] MEDS: INSULIN REGULAR, HUMAN 100 UNIT/ML INJECTION SQ PRN (05:55)
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
[2016-11-25] MEDS ORDERED: NOZIN NASAL SWAB NAS ONE (08:33)
[2016-11-25] MEDS ORDERED: DONEPEZIL 10 MG TABLET PO SCH (09:00)
--- NOTE | 2016-11-25 09:01 | XRay Report ---
Indication: fall tonight with right hip pain PROCEDURE: XR pelvis w/ 2 view RT hip: Encounter: Initial Comparison: September 07, 2014 Findings: Nondisplaced intertrochanteric fracture of the right femur. No additional acute fracture or dislocation. Bony demineralization. No significant angulation on the crosstable lateral view. Impression: Closed posttraumatic intertrochanteric right femoral fracture. .
--- NOTE | 2016-11-25 09:02 | XRay Report ---
Indication: fall PROCEDURE: XR chest 1V: Encounter: Initial Comparison: August 30, 2016 Findings: The lungs are stable in appearance without new focal airspace consolidation. There is no pleural effusion or pneumothorax. The heart size, pulmonary vascularity and mediastinal contours are unchanged. Prior cardiac valve replacement. IMPRESSION: Stable appearance of the chest without acute cardiopulmonary disease. .
[2016-11-25] MEDS ORDERED: INFLUENZA VAC. INJ. ADMIN CHARGE INJ ONE (09:21)
[2016-11-25] MEDS ORDERED: PNEUMOCOCCAL VAC ADMIN CHARGE INJ ONE (09:22)
[2016-11-25] MEDS: NS 1,000 ML IV SCH ×2 (09:43→19:46)
[2016-11-25] MEDS: INSULIN ASPART 100unit/ml INJECTION SQ SCH ×3 (10:43→18:51)
[2016-11-25] MEDS: CITALOPRAM 20 MG TABLET PO SCH (10:44)
[2016-11-25] MEDS: FAMOTIDINE 20 MG TABLET PO SCH (10:44)
[2016-11-25] MEDS: MEMANTINE 5 MG TABLET PO SCH ×2 (10:50→20:01)
[2016-11-25] MEDS ORDERED: INSULIN ASPART 100unit/ml INJECTION SQ ONE (12:15)
[2016-11-25] MEDS: MORPHINE SULFATE 2mg INJECTION IVP PRN (12:16)
--- NOTE | 2016-11-25 12:47 | Progress Note ---
Progress Note: Mr. Lopez was evaluated for possible surgical stabilization of right IT fracture. Please refer to full note in my addendum to the H&P. Chest x-ray is unremarkable and EKG demonstrates LVH with strain-unchanged from the past. Family report no evidence of recent neurological symptoms or complaints of chest pain. Troponins overnight unremarkable. Plavix on board with clear evidence of effectiveness by assay. Lungs are clear on exam, cardiac rhythm regular, abdomen benign, and patient moving extremities to stimulation symmetrically. Hemodynamically stable. Stable for surgery as planned. Discussed with Blair BALDERAS.
[2016-11-25] MEDS ORDERED: DiphenhydrAMINE 25 MG CAPSULE PO ONE (14:16)
[2016-11-25] MEDS ORDERED: FentaNYL 100 MCG/2 ML INJECTION ONE (14:32)
[2016-11-25] MEDS ORDERED: KETAMINE 500 MG/10 ML INJECTION ONE (14:33)
[2016-11-25] MEDS ORDERED: MIDAZOLAM 2mg/2ml INJECTION ONE (14:33)
--- NOTE | 2016-11-25 14:40 | Anesthesia Preoperative Report ---
Anesthesia Preoperative Record - Date and Time Date: 11/25/16 Preoperative Diagnosis: Right intertrochanteric fx Proposed Procedure: Hip Gamma nail NPO Since Date: 11/25/16 NPO Since Time: 00:00 Allergies/Adverse Reactions: Allergies Allergy/AdvReac Type Severity Reaction Status Date / Time codeine Allergy Unknown Verified 11/24/16 23:24 - Vital Signs Vital Signs: Temperature 96.8 F 11/25/16 07:22 Pulse Rate 73 11/25/16 08:00 Respiratory Rate 18 11/25/16 07:22 Blood Pressure 154/67 H 11/25/16 07:22 Pulse Oximetry 91 11/25/16 07:22 Height and Weight: Height 5 ft 6 in Weight 57.5 kg Body Mass Index 19.5 - Medications Inpatient Medications: Current Medications Acetaminophen (Tylenol) 325 - 650 mg PO Q5H PRN PRN Reason: Discomfort Aspirin (Ecotrin) 81 mg PO DAILY [facility] Citalopram Hydrobromide (Celexa) 20 mg PO DAILY [facility] Last Admin: 11/25/16 10:44 Dose: Not Given Dextrose (D50%W) 0 ml IVP PRN PRN; Protocol PRN Reason: Hypoglycemia Diphenhydramine HCl (Benadryl) 50 mg PO ONCE ONE Stop: 11/25/16 14:17 Docusate Sodium (Colace) 100 mg PO BID PRN Donepezil HCl (Aricept) 10 mg PO HS [facility] Famotidine (Pepcid) 20 mg PO DAILY [facility] Last Admin: 11/25/16 10:44 Dose: Not Given Glucose (Glutose 15) 37.5 gm PO PRN PRN PRN Reason: Hypoglycemia Sodium Chloride (Normal Saline) 1,000 mls @ 100 mls/hr IV .Q10H [facility] Last Admin: 11/25/16 09:43 Dose: 100 mls/hr Insulin Aspart (Novolog) 5 unit SQ WM NAT Last Admin: 11/25/16 12:17 Dose: Not Given Insulin Aspart (Novolog) 0 unit SQ SS PRN; Protocol PRN Reason: Hyperglycemia Memantine (Namenda) 5 mg PO BID [facility] Last Admin: 11/25/16 10:50 Dose: Not Given Metoprolol Tartrate (Lopressor) 50 mg PO BIDWM [facility] Last Admin: 11/25/16 12:16 Dose: 50 mg Mirtazapine (Remeron Solu-Tab) 15 mg PO HS NAT Morphine Sulfate (Morphine Sulfate Inj) 1 - 2 mg IVP Q2H PRN PRN Reason: Pain Last Admin: 11/25/16 12:16 Dose: 2 mg Multivitamins/Minerals (Vision) 1 tab PO DAILY NAT Ondansetron HCl (Zofran) 4 mg IVP Q6H PRN PRN Reason: Nausea &/or vomiting Home Medications: Home Medications Medication Instructions Recorded Confirmed Type Citalopram Hydrobromide 20 mg PO DAILY #0 12/11/11 11/24/16 History [Citalopram HBr] Donepezil HCl [Aricept] 10 mg PO DAILY #0 12/11/11 11/24/16 History Mirtazapine [Remeron] 15 mg PO HS #0 05/10/16 11/24/16 History Famotidine [Pepcid] 20 mg PO DAILY 08/30/16 11/24/16 History Memantine HCl 5 mg PO BID 08/30/16 11/24/16 History Metoprolol Tartrate [Lopressor] 50 mg PO BID 08/30/16 11/24/16 History Multivit-Min/FA/Lycopen/Lutein 1 each PO DAILY 08/30/16 11/24/16 History [Centrum Silver Tablet] Aspirin [Ecotrin] 81 mg PO DAILY 11/24/16 11/24/16 History Bumetanide Tab [Bumex Tab] 1 mg PO BID 11/24/16 11/24/16 History Clopidogrel [Plavix] 75 mg PO DAILY 11/24/16 11/24/16 History Insulin Aspart [Novolog Flexpen] 5 unit SQ WM 11/24/16 11/24/16 History Metformin [Glucophage] 500 mg PO DAILY 11/24/16 11/24/16 History Metformin [Glucophage] 850 mg PO BIDWM 11/24/16 11/24/16 History Is Patient on Beta Kaylene?: Yes Beta Kaylene Last Dose Date/Time: 11/24/16 - Medical History Respiratory: Reports: Chronic Obstructive Pulmonary Disease (COPD) Cardiovascular: Reports: Coronary Artery Disease, Hypertension, Valvular Heart Disease (Aortic valve replacement July 2016) Gastrointestional: Reports: Gastroesophageal Reflux Disease (controlled with meds) Neuro/Musculoskeletal: Denies: HX.MS.OSAR, Back Problems, Cerebrovascular Accident, Depression, Headaches, Loss of Consciousness, Muscle Weakness, Neuromuscular Disorder, Paralysis, Paresthesia, Syncope, Seizures, Other Renal/Endocrine: Reports: Diabetes Mellitus Type 1 (insulin and metformin) Other History: Reports: Anesthesia Reactions (cognitive dysfunction due to dementia postop) - Surgical History Cardiac Surgeries/Treatments: Reports: Cardiac Catheterization, Valve Replacement Respiratory Surgery/Treatments: Reports: Oxygen Administration (at night) GI Surgery/Treatments: Reports: Hernia Repair Anesthesia Reactions: Delirium Hx Family Anesthesia Reaction: No History of Motion Sickness: No - Social History Smoking Status: Former smoker (quit 2016) Substance Use Type: does not use - Pertinent Findings Laboratory: CBC and BMP 11/25/16 06:09 11/25/16 01:48 BMP 11/25/16 01:48 Sodium 140 Potassium 4.4 Chloride 105 Carbon Dioxide 22 BUN 25.0 H Creatinine 1.2 D Glucose 236 H Calcium 9.3 Cardiac Enzymes 11/25/16 11/25/16 Range/Units 01:48 06:09 Troponin I 0.015 0.020 (0-0.12) ng/ml EKG: Sinus Rhythm - Physical Exam Respiratory Exam: Present: lungs clear, bilateral breath sounds equal Cardiovascular Exam: Present: regular rate and rhythm, no murmur - Airway Assessment Mallampati Score: III TMD: 3 Fingerbreadths Neck Extension: fair Overall Assessment: may be difficult intubation - ASA ASA Score: 4, E - Plan Anesthesia: General TIVA - Discussion Discussion: Discussed risks/options/alternatives of anesthesia and questions answered. Patient consents. Nursing pain assessment noted. Present for Discussion: spouse, children, family member Attestation Statement: Prior to the delivery of any anesthetic medication, I examined the patient, developed the plan, obtained the patient's consent and discussed the risk and benefits of the procedure with the patient/guardian. - Additional Information Seen by Anesthesia: Yes
[2016-11-25] MEDS ORDERED: LR 1,000 ML IV SCH (15:00)
[2016-11-25] MEDS ORDERED: BUPIVACAINE 0.25% (2.5mg/ml) PF 30ml INJECTION ONE (15:36)
[2016-11-25] MEDS: CEFAZOLIN 1 G INJECTION IVP ONE (16:39)
[2016-11-25] MEDS ORDERED: BUPIVACAINE 0.25% (2.5mg/ml) PF 30ml INJECTION SQ ONE (17:18)
[2016-11-25] MEDS ORDERED: PHENYLEPHRINE INJ 10 MG/ML VIAL IV ONE (17:30)
[2016-11-25] MEDS ORDERED: PROPOFOL 20 ML ONE (17:30)
[2016-11-25] MEDS ORDERED: PROPOFOL 500 MG/50 ML VIAL IV ONE (17:30)
[2016-11-25] MEDS ORDERED: ONDANSETRON 4 MG/2 ML INJECTION ONE (17:30)
--- NOTE | 2016-11-25 17:56 | Post Procedure Note ---
Date of Procedure: 11/25/16 Orthopedic Surgeon: Gabino Orthopedic Assisting Surgeon: Blair Ayala Anesthesia: General TIVA Procedure: Procedures Operation Date: 11/25/16 16:00 Actual Procedures p ORIF Intertrochanteric Hip(Right) intramedullary nail- Damon Lloyd MD Condition: Stable Disposition: PACU
--- NOTE | 2016-11-25 18:37 | Anesthesia Postoperative Note ---
- Date and Time Date: 11/25/16 Time: 18:37 - Status Patient Participated in Evaluation: Patient Participated in Person Vital Signs: Temperature 97.1 F 11/25/16 17:51 Pulse Rate 78 11/25/16 18:25 Respiratory Rate 14 11/25/16 18:25 Blood Pressure 144/63 H 11/25/16 18:25 Pulse Oximetry 96 11/25/16 18:25 Respiratory Function: Airway Patent Cardiovascular Function: Regular Pulse EKG: Sinus Rhythm Mental Status: Alert and Oriented (to baseline) Hydration: IV Infusing Complications During Recover: None Apparent - Follow-Up Instructions Instructions: Per Surgeon
[2016-11-25] MEDS ORDERED: SENNA + DOCUSATE TABLET PO PRN (18:50)
[2016-11-25] MEDS ORDERED: ONDANSETRON 4 MG/2 ML INJECTION IVP PRN (18:50)
[2016-11-25] MEDS ORDERED: HALOPERIDOL 5 MG/ML INJECTION IVP PRN (19:55)
[2016-11-25] MEDS: MIRTAZAPINE 15 MG SOLU-TAB PO SCH (20:01)
[2016-11-25] MEDS: DONEPEZIL 10 MG TABLET PO SCH (20:01)
[2016-11-25] MEDS: NOZIN NASAL SWAB NAS SCH (20:08)
[2016-11-25] MEDS ORDERED: LABETALOL 100mg/20ml INJECTION IVP PRN (20:43)
[2016-11-25] MEDS: INSULIN ASPART 100unit/ml INJECTION SQ PRN (20:50)
[2016-11-25] MEDS: TRAMADOL 50 MG TABLET PO PRN (20:51)
[2016-11-26] MEDS: NS 1,000 ML IV SCH ×3 (00:03→12:35)
[2016-11-26] MEDS: CEFAZOLIN 1 G in NS 100 ML IV SCH ×2 (00:07→06:43)
[2016-11-26] MEDS: NOZIN NASAL SWAB NAS SCH ×3 (05:00→18:15)
[2016-11-26] MEDS: TRAMADOL 50 MG TABLET PO PRN ×3 (05:07→15:54)
[2016-11-26] MEDS: INSULIN ASPART 100unit/ml INJECTION SQ PRN ×3 (05:12→21:04)
--- NOTE | 2016-11-26 07:54 | Remote Fluorsocopy Report ---
Indication: ORIF RT HIP RF hip RT 2 view: Comparison: None Technique: Patient shows a series of C-arm images during a compression nail and intramedullary te placement stabilizing the right hip. Findings: Patient showed postoperative changes with satisfactory bony alignment. Impression: Intraoperative C-arm imaging during stabilization of the right hip. Fluoroscopy time 85 seconds .
[2016-11-26] MEDS: INSULIN ASPART 100unit/ml INJECTION SQ SCH ×4 (09:41→18:15)
[2016-11-26] MEDS: MEMANTINE 5 MG TABLET PO SCH ×2 (09:54→21:02)
[2016-11-26] MEDS: MULTI-VIT + MINERAL (Opti-gen) TABLET PO SCH (09:54)
[2016-11-26] MEDS: ASPIRIN *EC* 81 MG TABLET PO SCH (09:55)
[2016-11-26] MEDS: MAGNESIUM SULFATE 1gm PREMIX 1 GM/100 ML BAG IV SCH ×2 (09:55→11:08)
[2016-11-26] MEDS: FAMOTIDINE 20 MG TABLET PO SCH (09:55)
[2016-11-26] MEDS: CLOPIDOGREL 75 MG TABLET PO SCH (09:55)
[2016-11-26] MEDS: CITALOPRAM 20 MG TABLET PO SCH (09:55)
--- NOTE | 2016-11-26 09:56 | Operative Note ---
DATE OF OPERATION 11/25/2016 PREOPERATIVE DIAGNOSIS Right intertrochanteric hip fracture. POSTOPERATIVE DIAGNOSIS Right intertrochanteric hip fracture. PROCEDURE Right intramedullary nailing intertrochanteric hip fracture. SURGEON Damon Lloyd MD CREDIT ASSOCIATE Blair Ayala PA-C ANESTHESIA General FLUIDS Please refer to Anesthesia chart. EBL Minimal TOURNIQUET None used. COMPLICATIONS None CONDITION Stable to recovery room. IMPLANTS Angela short gamma nail with 90 mm cephalomedullary screw and 37.5 mm x 5 mm distal locking screw. DESCRIPTION OF PROCEDURE The patient was identified in the preoperative holding area. The operative extremity was identified and appropriately marked. The risks, benefits, alternatives and potential complications were discussed with the patient and family and informed consent was obtained. The patient was taken to the operating theatre. The patient had anesthesia administered after appropriate cardiorespiratory monitors were applied. Once adequate anesthesia was obtained , he was transferred over to the fracture table. Peroneal post was placed. Upper extremities were secured and padded in a safe position. Bilateral lower extremities were placed in traction boots. The right leg was placed in a straight line traction. The left well leg was placed in an extended position. Fluoroscopy was brought in to visualize the fracture alignment. It was well reduced in the AP and lateral planes. The right lower extremity was then sterilely prepped and draped in the usual fashion. Surgical time-out was performed, confirmed with myself, the communication signals intelligence and circulating nurse. Preoperative antibiotics had been given. Fluoroscopy was used to identify the tip of the trochanter. A 3 cm incision was created just proximal to the tip of the trochanter. Blunt dissection was carried down and sharp dissection was carried through the gluteal fascia. Hemostasis was obtained with electrocautery as necessary. Under fluoroscopic guidance, the proximal guide pin was inserted by hand and position confirmed in the AP and lateral planes. Opening canal reamer was then utilized with a soft tissue protector. A short nail was opened at the back table and placed on the external guide. The short nail was then inserted to the appropriate depth utilizing the radiopaque marker laterally. Once appropriate depth was obtained, a second 2 cm incision was created after marking the skin with the guide for the cephalomedullary screw. Blunt dissection was carried through the subcutaneous tissue, again with electrocautery being used as necessary for hemostasis. The IT band was sharply incised longitudinally. A Nettles elevator was used to clear soft tissue from the lateral femur. The guide was then reinserted and position confirmed with fluoroscopy. The guidewire was then advanced, confirming center-center position in the AP and lateral planes. The guidewire was measured. We then reamed to a 90 mm depth. The cephalomedullary screw was opened and assembled at the back table and then was inserted. Once appropriate depth of insertion was obtained, traction was taken off the leg and compression was applied through the device. The locking screw was then placed proximally. The distal locking screw guide was then attached. Again a small stab incision was created distally on the thigh for placement of the distal locking screw. This was then drilled, measured and a 37.5 mm distal locking screw was placed. Final x-rays were obtained in the AP and lateral planes showing good reduction and fixation of this intertrochanteric hip fracture. The wounds were copiously irrigated and closed in a standard layered fashion. Sterile dressings were applied. The patient's legs were taken out of the traction table. He was transported back over to his hospital bed, awakened from anesthesia and taken to the recovery room. THA
--- NOTE | 2016-11-26 12:19 | Orthopedic Progress Note ---
Date: Subjective/Severity of Illness: Brock is reporting minimal pain in the hip. He is sitting in his chair. PT has not worked with him yet. Denies CP or breathing issues. Orthopedic Objective PO Vital signs: Temperature 97.3 F 11/26/16 07:56 Pulse Rate 90 11/26/16 09:46 Respiratory Rate 16 11/26/16 07:56 Blood Pressure 128/60 11/26/16 07:56 Pulse Oximetry 93 11/26/16 08:30 Height and Weight: Height 5 ft 6 in Weight 126 lb 12.253 oz Body Mass Index 19.5 - Constitutional General Appearance: Present: alert, no acute distress - Respiratory Exam Present: non-labored - Cardiovascular Exam Present: pedal pulses intact - Extremities Exam Extremities: Present: pulses intact. Absent: calf tenderness - Surgical Site Incision: dressing intact, no drainage - Integumentary Exam Present: pink, warm, dry - Neurological Exam Present: no deficits - Psychiatric Exam Present: other (dementia) - Labs Result Diagrams: 11/26/16 04:52 11/26/16 04:52 Abnormal lab results 11/25/16 11/26/16 11/26/16 Range/Units 13:38 04:52 04:52 RBC 2.80 L (4.50-5.90) M/MM3 Hgb 9.0 L D (13.5-17.5) GM/DL Hct 27.7 L D (41-53) % [place] % (Auto) 9.6 H (0-9.0) % [place] # (Auto) 1.1 H (0-0.8) T/MM3 Abs Immat Gran (auto) 0.04 H (0.00-0.03) T/MM3 Chloride 113 H D (98-107) MEQ/L Carbon Dioxide 20 L (22-30) MEQ/L Glucose 249 H (75-110) MG/DL Magnesium 1.3 L (1.6-2.3) MG/DL Albumin 3.0 L (3.5-5.0) G/DL Urine Protein Trace A (NEGATIVE) Urine Occult Blood 3+ A (NEGATIVE) Urine RBC 5-10 H (0-3) /HPF H & H 11/25/16 11/26/16 Range/Units 06:09 04:52 Hgb 10.9 L 9.0 L D (13.5-17.5) GM/DL Hct 32.2 L 27.7 L D (41-53) % Orthopedic Assessment and Plan (1) Closed right femoral fracture Status: Acute Qualifiers: Encounter type: initial encounter Femur location: intertrochanteric Fracture alignment: nondisplaced Qualified Code(s): S72.144A - Nondisplaced intertrochanteric fracture of right femur, initial encounter for closed fracture Problem Details: R-IT fx Assessment and Plan: Current anti-coagulation protocol for VTE prophylaxis. SCD's for added coverage. PT/OT services to improve independent function. WBAT. Discharge Planning per Case Management. - Anticoagulation Therapy Anticoagulation: Lovenox 40 mg SQ Daily x 30 days from day of surgery Hospital Course Summary Disclaimer: The visit summary below is not to be considered part of the above Progress Note. Hospital Course: 11/25/16 13:22 Reason overnight with right IT fracture after fall at [facility]. Medically stable to proceed with ORIF. Platelets are inhibited by Plavix and if excess bleeding is encountered may require platelet transfusion. Beta elizabeth given this morning, resume home medications postoperatively. Corrective scale insulin utilized for glycemic control preoperatively. Continue IV fluids while nothing by mouth. Creatinine above baseline on presentation-suspect patient was slightly dry, [facility] [place] records reviewed-creatinine at discharge was 1.29 so may reflect new baseline. GFR during hospitalization there ranged from 46-60. UA pending Postoperative course discussed with patient's daughter/. Both report significant delirium following his valve surgery so they are aware of the potential for several lorena days. PT/OT will see tomorrow. Discussed with Blair BALDERAS.
--- NOTE | 2016-11-26 15:21 | Progress Note ---
Subjective: Mr. Lopez was up in a chair having breakfast. Nursing reports that he was able to stand and take several steps and did better than anticipated. No problems were encountered overnight and he rested well. No concerns expressed by family members at the bedside. Costa catheter has been removed but only a short time prior to my visit. Nursing/family reports the pain control seems adequate. Patient does not indicate any concerns denying pain or dyspnea. Objective Vital signs: Temperature 97.3 F 11/26/16 07:56 Pulse Rate 86 11/26/16 12:41 Respiratory Rate 20 11/26/16 12:41 Blood Pressure 133/59 11/26/16 12:41 Pulse Oximetry 91 11/26/16 12:52 NAD, pleasantly confused Respirations nonlabored, decreased airflow throughout, breath sounds clear Regular rhythm, S1-S2 Soft, nontender abdomen No peripheral edema noted Height/Weight/BMI: Height 1.68 m Weight 57.5 kg Body Mass Index 19.5 Results - Labs CBC & Chem 7: 11/26/16 04:52 11/26/16 04:52 Labs: Magnesium 1.3, phosphorus 3.3 Assessment and Plan (1) Closed right femoral fracture Problem details: R-IT fx Current visit: Yes Status: Acute DVT Prophylaxis: SCD's, Lovenox Resuscitation Status: Do Not Resuscitate Assessment and Plan: Impression: Right IT fracture, IM nail 11/25/16 Ambulatory dysfunction AVR-tissue, history aortic stenosis Dementia Anemia, blood loss superimposed on chronic Hypomagnesemia Diabetes mellitus, insulin requiring-A1c 8.4 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 Hemoglobin down from 12.1 preop to 9.0 currently; anticipate additional drop over the next 1-2 days. Blood pressure stable on usual home medications postoperatively except Bumex which remains on hold. Magnesium low-supplemented IV this morning and will initiate oral magnesium replacement as patient is on chronic diuretics. Scheduled and corrective scale insulin utilized for glycemic control, resume metformin this evening. Blood sugars high this afternoon after patient inadvertently got 2 trays at lunch. Renal function improved with hydration, rate of saline infusion decreased. We' ll discontinue when taking by mouth well. No difficulty with delirium overnight. Lorazepam or Haldol available if needed- family report no adverse reactions to either in the past but don't believe either was used following heart surgery. DO NOT RESUSCITATE rewritten. Family hopes to consider IRU as discharge option. Hospital Course Summary Disclaimer: The visit summary below is not to be considered part of the above Progress Note. Hospital Course: 11/25/16 13:22 Reason overnight with right IT fracture after fall at [facility]. Medically stable to proceed with ORIF. Platelets are inhibited by Plavix and if excess bleeding is encountered may require platelet transfusion. Beta elizabeth given this morning, resume home medications postoperatively. Corrective scale insulin utilized for glycemic control preoperatively. Continue IV fluids while nothing by mouth. Creatinine above baseline on presentation-suspect patient was slightly dry, The [facility] records reviewed-creatinine at discharge was 1.29 so may reflect new baseline. GFR during hospitalization there ranged from 46-60. UA pending Postoperative course discussed with patient's daughter/. Both report significant delirium following his valve surgery so they are aware of the potential for several lorena days. PT/OT will see tomorrow. Discussed with Blair BALDERAS. 11/26/16 15:33 Medically stable following ORIF. Hemoglobin down from 12.1 preop to 9.0 currently; anticipate additional drop over the next 1-2 days. Blood pressure stable on usual home medications postoperatively except Bumex which remains on hold. Magnesium low-supplemented IV this morning and will initiate oral magnesium replacement as patient is on chronic diuretics. Scheduled and corrective scale insulin utilized for glycemic control, resume metformin this evening. Blood sugars high this afternoon after patient inadvertently got 2 trays at lunch. Renal function improved with hydration, rate of saline infusion decreased. We' ll discontinue when taking by mouth well. No difficulty with delirium overnight. Lorazepam or Haldol available if needed- family report no adverse reactions to either in the past but don't believe either was used following heart surgery.
[2016-11-26] MEDS: CEFAZOLIN 1 G INJECTION IVP ONE (18:04)
[2016-11-26] MEDS: METFORMIN 850 MG TABLET PO SCH (18:15)
[2016-11-26] MEDS: MAGNESIUM OXIDE 400 MG TABLET PO SCH (21:02)
[2016-11-26] MEDS: DONEPEZIL 10 MG TABLET PO SCH (21:03)
[2016-11-26] MEDS: MIRTAZAPINE 15 MG SOLU-TAB PO SCH (21:15)
[2016-11-27] MEDS: MORPHINE SULFATE 2mg INJECTION IVP PRN (01:31)
[2016-11-27] MEDS: NOZIN NASAL SWAB NAS SCH ×3 (04:16→18:06)
[2016-11-27] MEDS: METFORMIN 850 MG TABLET PO SCH ×2 (08:52→18:06)
[2016-11-27] MEDS: CLOPIDOGREL 75 MG TABLET PO SCH (08:53)
[2016-11-27] MEDS: FAMOTIDINE 20 MG TABLET PO SCH (08:53)
[2016-11-27] MEDS: ASPIRIN *EC* 81 MG TABLET PO SCH (08:53)
[2016-11-27] MEDS: ENOXAPARIN 40 MG/0.4 ML INJECTION SQ SCH (08:53)
[2016-11-27] MEDS: CITALOPRAM 20 MG TABLET PO SCH (08:53)
[2016-11-27] MEDS: MULTI-VIT + MINERAL (Opti-gen) TABLET PO SCH (08:54)
[2016-11-27] MEDS: MAGNESIUM OXIDE 400 MG TABLET PO SCH ×2 (08:54→21:50)
[2016-11-27] MEDS: MEMANTINE 5 MG TABLET PO SCH ×2 (08:54→21:50)
[2016-11-27] MEDS: INSULIN ASPART 100unit/ml INJECTION SQ SCH ×3 (09:17→18:15)
[2016-11-27] MEDS: TRAMADOL 50 MG TABLET PO PRN ×2 (09:17→19:22)
[2016-11-27] MEDS: NS 1,000 ML IV SCH (09:22)
[2016-11-27] MEDS: INSULIN ASPART 100unit/ml INJECTION SQ PRN (11:27)
[2016-11-27] MEDS: METFORMIN 500 MG TABLET PO SCH (14:20)
--- NOTE | 2016-11-27 15:13 | Discharge Instructions ---
Discharge Plan - Med Rec/Dispo Referrals/Follow Up: Blair Ayala PA [Physician Crts] - 12/13/16 9:30 am [facility] Instructions: Blood Transfusion (GEN), [facility] Postop Instructions Prescriptions: No Action Donepezil HCl [Aricept] 10 mg PO DAILY #0 Mirtazapine [Remeron] 15 mg PO HS #0 Metoprolol Tartrate [Lopressor] 50 mg PO BID Multivit-Min/FA/Lycopen/Lutein [Centrum Silver Tablet] 1 each PO DAILY Metformin [Glucophage] 850 mg PO BIDWM Bumetanide Tab [Bumex Tab] 1 mg PO BID Clopidogrel [Plavix] 75 mg PO DAILY Aspirin [Ecotrin] 81 mg PO DAILY Citalopram Hydrobromide [Citalopram HBr] 20 mg PO DAILY #0 Famotidine [Pepcid] 20 mg PO DAILY Memantine HCl 5 mg PO BID Metformin [Glucophage] 500 mg PO DAILY Insulin Aspart [Novolog Flexpen] 5 unit SQ WM
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
[2016-11-27] MEDS: MIRTAZAPINE 15 MG SOLU-TAB PO SCH (21:49)
[2016-11-27] MEDS: DONEPEZIL 10 MG TABLET PO SCH (21:49)
[2016-11-27] MEDS: POLYETHYL GLYCOL 3350 17gm PACKET PO SCH (21:49)
[2016-11-27] MEDS: SENNA + DOCUSATE TABLET PO SCH (21:49)
[2016-11-28] MEDS: MORPHINE SULFATE 2mg INJECTION IVP PRN ×2 (01:28→14:15)
[2016-11-28] MEDS: NOZIN NASAL SWAB NAS SCH ×3 (03:53→12:18)
[2016-11-28 07:51] VITALS: RESP 18
[2016-11-28] MEDS: POLYETHYL GLYCOL 3350 17gm PACKET PO SCH (08:54)
[2016-11-28] MEDS: ENOXAPARIN 40 MG/0.4 ML INJECTION SQ SCH (08:54)
[2016-11-28] MEDS: CLOPIDOGREL 75 MG TABLET PO SCH (08:55)
[2016-11-28] MEDS: MAGNESIUM OXIDE 400 MG TABLET PO SCH (08:55)
[2016-11-28] MEDS: FAMOTIDINE 20 MG TABLET PO SCH (08:55)
[2016-11-28] MEDS: CITALOPRAM 20 MG TABLET PO SCH (08:55)
[2016-11-28] MEDS: MULTI-VIT + MINERAL (Opti-gen) TABLET PO SCH (08:55)
[2016-11-28] MEDS: MEMANTINE 5 MG TABLET PO SCH (08:55)
[2016-11-28] MEDS: SENNA + DOCUSATE TABLET PO SCH (08:55)
[2016-11-28] MEDS: METFORMIN 850 MG TABLET PO SCH (08:56)
[2016-11-28] MEDS: INSULIN ASPART 100unit/ml INJECTION SQ PRN ×2 (09:12→12:27)
[2016-11-28] MEDS: INSULIN ASPART 100unit/ml INJECTION SQ SCH ×2 (09:12→12:28)
[2016-11-28] MEDS: ASPIRIN *EC* 81 MG TABLET PO SCH (09:12)
[2016-11-28] MEDS: TRAMADOL 50 MG TABLET PO PRN (09:32)
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
[2016-11-28 12:06] VITALS: BP 157/69; PULSE 73; TEMP 97.9; O2SAT 95
[2016-11-28] MEDS: METFORMIN 500 MG TABLET PO SCH (12:27)
== END 2016-11-28 14:22 | DRG 481 ==
LOC: ED 20:01 → SRG 22:06
PROVIDERS: ADMIT Emergency Medicine; ATTEND Internal Medicine